=== PATIENT | male | born 1950 | race Caucasian/White ===

== ENCOUNTER 2021-07-18 09:33 | Outpatient (CLI) | payer OTHER ==
[~2021-07-18 09:33] MED LIST: Iopamidol 370 76% 100 ML VIAL ONE
== END 2021-07-18 09:34 | disposition home or self-care (01) ==
LOC: NAV CT 09:33
PROVIDERS: ATTEND Thoracic Surgery (Cardiothoracic Vascular Surgery)
DX: I65.23 Occlusion and stenosis of bilateral carotid arteries (principal); J90 Pleural effusion, not elsewhere classified; I70.8 Atherosclerosis of other arteries
CPT/HCPCS: 36415; 70498; 82565; Q9967

== ENCOUNTER 2021-07-22 08:35 | Outpatient (CLI) | payer OTHER | END 2021-07-22 08:36 | disposition home or self-care (01) | LOC: NAV LAB 08:35 | PROVIDERS: ATTEND Radiology Diagnostic Radiology | DX: Z01.812 Encounter for preprocedural laboratory examination (principal) | CPT/HCPCS: 36415; 82565 ==

== ENCOUNTER 2022-11-18 11:29 | Emergency (ER) | payer OTHER | END 2022-11-18 12:45 | disposition home or self-care (01) | LOC: NAV ERS 11:29 | DX: E86.1 Hypovolemia (principal); I10 Essential (primary) hypertension; Z95.811 Presence of heart assist device | CPT/HCPCS: 93005 ==